=== PATIENT | male | born 1970 | race Caucasian/White ===

== ENCOUNTER 2020-08-22 03:29 | Emergency (ER) | payer SELFPAY ==
[2020-08-22 03:11] VITALS: BP 155/105; PULSE 100; RESP 16; TEMP 36.8; O2SAT 97
[2020-08-22 03:17] VITALS: PULSE 100
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
[2020-08-22 04:44] VITALS: BP 141/88; PULSE 76; RESP 16; TEMP 36.7; O2SAT 97
== END 2020-08-22 04:45 | disposition home or self-care (01) ==
PROVIDERS: Emergency Provider Emergency Medicine
DX: T69.9XXA Effect of reduced temperature, unspecified, initial encounter (principal); F17.290 Nicotine dependence, other tobacco product, uncomplicated; X31.XXXA Exposure to excessive natural cold, initial encounter
CPT/HCPCS: 99281